=== PATIENT | female | born 1945 | race Caucasian/White ===

== ENCOUNTER 2019-02-10 08:00 | Inpatient (IN) | payer MEDICARE, OTHER ==
[~2019-02-10 08:00] MED LIST: FAMOTIDINE 20MG TABLET PO ONE; MECLIZINE 25 MG TABLET PO ONE; METOCLOPRAMIDE 10 MG TABLET PO ONE
[2019-02-10] MEDS ORDERED: RINGERS SOLUTION,LACTATED 1,000 ML IV ONE (08:40)
[2019-02-10] MEDS ORDERED: NOVOLOG FLEXPEN (INSULIN ASPART) 100 UNITS/ML SQ ONE ×2 (09:24→18:06)
[2019-02-10] MEDS: CLINDAMYCIN 600MG/50ML PREMIX 600 MG/50 ML BAG IVPB ONE ×2 (10:43→10:46)
[2019-02-10] MEDS ORDERED: MAGNESIUM HYDROXIDE 30 ML UDC PO PRN (13:00)
[2019-02-10] MEDS ORDERED: ZOLPIDEM TARTRATE 5 MG TABLET PO PRN (13:00)
[2019-02-10] MEDS ORDERED: AL HYDROX/MAG HYDROX 30ML UD PO PRN (13:00)
[2019-02-10] MEDS ORDERED: ACETAMINOPHEN 325 MG TAB PO PRN (13:00)
[2019-02-10] MEDS ORDERED: NALOXONE 0.4 MG/1 ML VIAL IVP PRN (13:00)
[2019-02-10] MEDS ORDERED: SENNOSIDES/DOCUSATE SODIUM UD CAPSULE PO PRN (13:00)
[2019-02-10] MEDS ORDERED: DIPHENHYDRAMINE HCL 25 MG CAPSULE PO PRN (13:00)
[2019-02-10] MEDS ORDERED: HYDROMORPHONE HCL 2 MG/ML VIAL IV PRN (13:00)
--- NOTE | 2019-02-10 13:11 | Operative Note ---
DATE OF SURGERY: 02/10/2019 SURGEON: Joesph Luz D.O. REFERRING PHYSICIAN: Bruce Ortiz M.D. PREOPERATIVE DIAGNOSIS: OSTEOARTHRITIS OF THE LEFT HIP. POSTOPERATIVE DIAGNOSIS: OSTEOARTHRITIS OF THE LEFT HIP. OPERATION: LEFT TOTAL HIP ARTHROPLASTY. DESCRIPTION: This 73-year-old female was taken to the Operating Room and placed in the supine position on the operating room table. After spinal anesthesia had been introduced, she was then placed in the right lateral decubitus position and bolstered perpendicular to the floor and secured in this position with all bony prominences well padded and the head well secured. The left hip was then prepped with Hibiclens and draped in the usual sterile fashion. The scrub personnel wore personal isolation suits. A lateral hip incision was made dissecting down through the skin and subcutaneous tissue. Hemostasis was obtained with the electrocautery. The tensor was divided in line with the skin incision to expose the posterolateral aspect of the hips. A self retaining hip retractor was placed and the short rotators divided from the posterior aspect of the hip, capsulotomy performed, and the hip joint exposed. We used Steinmann pins as retractors, one superiorly, one posterosuperiorly, and one posteroinferiorly for excellent exposure to the acetabulum. The hip was then dislocated and the neck amputated. A Kober retractor was placed anteriorly, debridement of the labrum and anterior osteophytes was performed. We then began reaming the acetabulum with a size 48 mm reamer and reamed in 1 mm increments to a size 52 to the base of the condyloid notch. The trial cup was subsequently placed and this was seen to be the appropriate size, we subsequently impacted a 52 mm Trident cup in 40 degrees of abduction and approximately 20 degrees of anteversion. Excellent secure fit of the cup was noted and a trial liner was subsequently placed. We then began approaching the femur with box osteotome and subsequently a wrapper hand was placed down the shaft and then using an alternating ream broach technique we counter sunk the size 7 broach, it was actually seen to be a perfect neck cut and no planing of the calcar was necessary so subsequently a size 8 was placed with excellent secure fixation, subsequently the trial head and neck were applied and trial reduction was accomplished. We initially tried a 0 head and this was seen to be slightly too short and subsequently a +2.5 mm head was applied with the 30 mm neck trial and the hip was taken through range of motion, it was measured and found to be exactly reproducing the length of the femur and it was in the same position as it measured at the start of the procedure. The hip was stable throughout the entire range of motion with flexion to 120 wide abduction and external rotation, internal rotation to at last 70 degrees. All trial components were then removed and the wound again copiously irrigated with pulse lavage lactated Ringer's solution and a size 36 mm X3 liner was impacted in place followed by the insertion of a size 8 secure fit collared femoral components and a 36 mm +2.5 mm Biolox head being applied and the hip was reduced and again taken through range of motion with excellent stability of the joint being identified. The wound was again irrigated with lactated Ringer's solution and suctioned. The short rotators and capsule were reattached with #5 Ethibond suture through drill holes through the greater trochanter and secure fixation was subsequently noted. A drain was placed through a separate stab incision. The tensor was closed with #2 Vicryl, subcutaneous tissue was closed with 0 Vicryl, and the skin was stapled. Sterile dressings were applied. The patient was taken to the Recovery Room in satisfactory condition. GROSS PATHOLOGY: The patient demonstrated severe osteoarthritis of the left hip, spurs are present in the acetabulum anterior. Full thickness articular cartilage loss was noted. The final components inserted were: A [place] size 8 Secur-Fit collared femoral component, a 52 mm Trident cup PSL, and a 36 mm +2.5 mm Biolox head was used. JOB NUMBER: [id number] MTDD
[2019-02-10] MEDS: OXYCODONE HCL/APAP 5MG/325MG TABLET PO PRN ×2 (16:07→22:20)
[2019-02-10] MEDS ORDERED: MIDAZOLAM HCL 2MG/2ML VIAL IV ONE (16:12)
[2019-02-10] MEDS ORDERED: PROPOFOL 10 MG/ML VIAL IV ONE (16:12)
[2019-02-10] MEDS ORDERED: KETOROLAC 30 MG/ML VIAL IVP ONE (16:12)
[2019-02-10] MEDS ORDERED: LIDOCAINE 2% MDV (20MG/ML) 20ML VIAL IV ONE (16:12)
[2019-02-10] MEDS ORDERED: ROPIVACAINE HCL (NAROPIN) /PF 5MG/ML 20ML VIAL IV ONE (16:15)
[2019-02-10] MEDS ORDERED: 0.9 % SODIUM CHLORIDE 10 ML VIAL IVP ONE (16:15)
[2019-02-10] MEDS ORDERED: DEXAMETHASONE 4 MG/ML 1ML VIAL IVP ONE (16:15)
[2019-02-10] MEDS: RINGERS SOLUTION,LACTATED 1,000 ML IV SCH (16:32)
--- NOTE | 2019-02-10 17:09 | Rehab Evaluation ---
Patient Information - Patient Information Diagnosis: L hip DJD Ordered Treatment: PT Evaluate and Treat Status: Initial Evaluation Surgery: Yes (LTHR) Date of Surgery: 02/10/19 Past Medical/Surgical Hx: PAST MEDICAL/SURGICAL HISTORY Past Surgical History t& a; hysterectomy; kidney stone removal right; cataract left; cardiac ablation at [facility] (); 2009 ablation @ [facility] ; cardiac cath x RIGHT CATARACT EXTRACTION RTHA C SCOPES EGD'S PMH - Respiratory Hx Respiratory Disorders Yes Hx Pneumonia Yes: long ago Hx Sleep Apnea Yes Hx of CPAP Yes Hx of Oxygen Therapy No PMH - Cardiovascular Hx Cardiovascular Disorders Yes Hx Abnormal EKG Yes: a-fib before ablation Hx Cardiac Catheterization Yes: x2 Hx Hypertension Yes: GOOD CONTROL ON MEDS Hx Irregular Heartbeat Yes: ablation corrected A-Fib Hx Heart Murmur Yes: AT TIMES BENIGN Exercise Tolerance Good Residual Deficits from CVA Yes: NUMBNESS RIGHT SIDE PMH - Neuro Hx Neurological Disorders Yes Hx Cerebrovascular Accident Yes: ISCHEMIC STROKE 2015 Hx Neuropathy Yes: FEET PMH - GI Hx Gastrointestinal Disorders Yes Hx Rectal Bleeding Yes: HX OF Hx Weight Loss/Weight Gain Yes: 10 LB GAIN OVER LAST 4 MONTHS PMH - Hx Genitourinary Disorders Yes Hx Bladder Problem Yes: SOME LEAKING Hx Kidney Stones Yes: hctz caused stones PMH - Endocrine Hx Endocrine Disorders Yes Hx Diabetes Yes: DX'D 2006 Hx of NIDDM Yes Hx of IDDM Yes Comment: fbs 146-160 PMH - Musculoskeletal Hx Musculoskeletal Disorders Yes Hx Arthritis Yes: LEFT hip/ generalized Hx Back Injury Yes: LUMBAR FX PMH - Psych Hx Psychiatric Problems No PMH - Hematology/Oncology Hx Hematology/Oncology Yes Disorders 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 The patient will be staying on the main floor where her bedroom and bathroom are located. The bathroom is equipped with a walk in shower, shower bench, toilet with a riser seat with handles. There are no grab bars in bathroom. The patient has a front wheeled walker and standard cane and reachers, long handled shoe horn and sock aide.) Precautions: [place], Fall, Other (WBAT L LE and THR precautions.) - Time With Patient Total Time Spent With Patient (Min): 20 Treatment Procedures: Detail (Initial evaluation low complexity) Subjective Information - Subjective Information Per Patient (The patient had no complaints of pain.) Objective Data - Mental Status Patient Orientation: Oriented x3 - Visual Perception Appears within normal limits for therapeutic activities - ROM Not within normal limits (The patient's L hip is within THR precautions.) - Strength/Tone Not within normal limits (The patient's LE strength was not tested s/p surgery h owever was functional.) - Bed Mobility Needs Assist (The patient used the trapeze for supine to sit and required minimal PA to lift L LE with sit to supine.) - Transfers Independent (The patient was independent with sit to and from stand transfers. The patient stood but was not able to ambulate due to numbness and inability to weight bear in L LE.) - Balance Balance Sitting: Good Balance Standing: Fair - Gait Detail (The patient was unable to ambulate due to numbness in L LE.) Therapy Assessment - Therapy Assessment Detail (The patient was independent with transfers and bed mobility with use of trapeze. Patient was instructed to ambulate with nursing staff this pm once numbness decreases. Anticipate inpt. PT goals to be met in 1-2 sessions.) Problem List - Problem List Physical Therapy Problem List: Detail (Decreased L LE strength) Goals - Goals Physical Therapy Goals: 1) The patient will ambulate with front wheeled walker househod distances independently WBAT on the L LE. 2) The patient will ambulate on stairs using proper technique with supervision for safety. 3) The patient will be independent THR HEP. 4) The patient will exhibit good understanding of THR precautions. Prognosis - Prognosis Good Plan - Plan Physical Therapy Plan: PT 1-2 sessions for gait training on levels and stairs and instruction in THR HEP.
[2019-02-10] MEDS ORDERED: FONDAPARINUX 2.5 MG/0.5 ML SYR SQ SCH (19:00)
[2019-02-10] MEDS: NOVOLOG FLEXPEN (INSULIN ASPART) 100 UNITS/ML SQ SCH (19:09)
[2019-02-10] MEDS: METFORMIN 500 MG TABLET PO SCH (19:11)
[2019-02-10] MEDS: CLINDAMYCIN 600MG/50ML PREMIX 600 MG/50 ML BAG IVPB SCH (19:51)
[2019-02-10] MEDS ORDERED: LEVEMIR FLEXTOUCH 100 UNIT/ML INSULIN PEN SQ SCH (22:00)
[2019-02-10] MEDS ORDERED: METOPROLOL SUCC 25 MG TAB.ER PO SCH (22:00)
[2019-02-10] MEDS: ASPIRIN 325 MG TAB ENTERIC-COATED PO SCH (22:23)
[2019-02-11] MEDS: CLINDAMYCIN 600MG/50ML PREMIX 600 MG/50 ML BAG IVPB SCH ×2 (02:28→11:00)
[2019-02-11] MEDS: METFORMIN 500 MG TABLET PO SCH (08:22)
[2019-02-11] MEDS: OXYCODONE HCL/APAP 5MG/325MG TABLET PO PRN (08:23)
[2019-02-11] MEDS: NOVOLOG FLEXPEN (INSULIN ASPART) 100 UNITS/ML SQ SCH ×2 (08:25→11:30)
[2019-02-11] MEDS: RINGERS SOLUTION,LACTATED 1,000 ML IV SCH (09:51)
[2019-02-11] MEDS: ASPIRIN 325 MG TAB ENTERIC-COATED PO SCH (09:53)
[2019-02-11] MEDS ORDERED: LOSARTAN POTASSIUM 25 MG TABLET PO SCH (10:00)
[2019-02-11] MEDS ORDERED: BIFIDOBACTERIUM INFANTIS 4 MG CAPSULE PO SCH (10:00)
--- NOTE | 2019-02-11 10:30 | Physical Therapy Tx Note ---
Physical Therapy Tx Note - Treatment Note Tolerated: Good (Patient had some issues with dizziness while she was up walkin g, but for most part did great with walking with FWW, WBAT and stairs. No issues and as long as someone stands by, she is doing well. Nurse checked blood sugar after we were done and that could have been cause of issues.) Physical Therapy Tx Note: Detail (Patient seen at bedside, sitting up edge of bed and ready to walk so can go home as soon as doctor checks her out. Sit to stand safely with FWW close by, ambulated with FWW about 50 feet to door of Med- Surg then back to stairs. Encouraged glut squeeze when weightbearing on left LE to prevent trunk forward tilt. Ambulated down three steps with FWW and rail for support with proper technique then pivoted around and ambulated back up three steps with good technique and CGA only. Sat in chair back in room and performed exercises and reviewed hip precautions with PT then asked to lie down since somewhat dizzy. Nurse informed and patient's blood sugar then checked. Min assist to help patient back into bed with left LE. Good with hip precautions.) Physical Therapy Problem List: Detail (Decreased L LE strength) Physical Therapy Goals: 1) The patient will ambulate with front wheeled walker househod distances independently WBAT on the L LE. 2) The patient will ambulate on stairs using proper technique with supervision for safety. 3) The patient will be independent THR HEP. 4) The patient will exhibit good understanding of THR precautions. Prognosis: Good (Patient has passed goals for going home as far as PT goals concerned and doing very well normally, but having a little blood sugar issue today. Should be resolved soon.) Physical Therapy Plan: PT 1-2 sessions for gait training on levels and stairs and instruction in THR HEP. Most likely discharge home today. At any rate, PT goals met and discharged from PT.
--- NOTE | 2019-02-11 11:04 | Rehab Evaluation ---
Patient Information - Patient Information Diagnosis: L hip DJD Ordered Treatment: OT Evaluate and Treat Status: Initial Evaluation Surgery: Yes (LTHR) Date of Surgery: 02/10/19 Past Medical/Surgical Hx: PAST MEDICAL/SURGICAL HISTORY Past Surgical History t& a; hysterectomy; kidney stone removal right; cataract left; cardiac ablation at [facility] (); 2009 ablation @ [facility] ; cardiac cath x RIGHT CATARACT EXTRACTION RTHA C SCOPES EGD'S PMH - Respiratory Hx Respiratory Disorders Yes Hx Pneumonia Yes: long ago Hx Sleep Apnea Yes Hx of CPAP Yes Hx of Oxygen Therapy No PMH - Cardiovascular Hx Cardiovascular Disorders Yes Hx Abnormal EKG Yes: a-fib before ablation Hx Cardiac Catheterization Yes: x2 Hx Hypertension Yes: GOOD CONTROL ON MEDS Hx Irregular Heartbeat Yes: ablation corrected A-Fib Hx Heart Murmur Yes: AT TIMES BENIGN Exercise Tolerance Good Residual Deficits from CVA Yes: NUMBNESS RIGHT SIDE PMH - Neuro Hx Neurological Disorders Yes Hx Cerebrovascular Accident Yes: ISCHEMIC STROKE 2015 Hx Neuropathy Yes: FEET PMH - GI Hx Gastrointestinal Disorders Yes Hx Rectal Bleeding Yes: HX OF Hx Weight Loss/Weight Gain Yes: 10 LB GAIN OVER LAST 4 MONTHS PMH - Hx Genitourinary Disorders Yes Hx Bladder Problem Yes: SOME LEAKING Hx Kidney Stones Yes: hctz caused stones PMH - Endocrine Hx Endocrine Disorders Yes Hx Diabetes Yes: DX'D 2006 Hx of NIDDM Yes Hx of IDDM Yes Comment: fbs 146-160 PMH - Musculoskeletal Hx Musculoskeletal Disorders Yes Hx Arthritis Yes: LEFT hip/ generalized Hx Back Injury Yes: LUMBAR FX PMH - Psych Hx Psychiatric Problems No PMH - Hematology/Oncology Hx Hematology/Oncology Yes Disorders 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 Pt and spouse share all home mgmt, meal prep and laundry tasks.) Social History: Detail (The patient lives with spouse in a 2 story house with 3 steps at the entrance and 2 handrails. The patient will be staying on the main floor where her bedroom and bathroom are located. The bathroom is equipped with a walk in shower with a shower bench and a toilet with a riser seat with handles. There are no grab bars in bathroom. The patient has a front wheeled walker and standard cane and reachers, long handled shoe horn and sock aide.) Precautions: [place], Fall, Other (WBAT L LE and THR precautions.) - Time With Patient Total Time Spent With Patient (Min): 45 Treatment Procedures: Detail (OT eval low complexity) Subjective Information - Subjective Information Per Patient Objective Data - Pain Pain Present: Yes (06/01) - Mental Status Patient Orientation: Oriented x3 - Visual Perception Appears within normal limits for therapeutic activities - ROM Within normal limits (Thomas UE AROM WNL) - Strength/Tone Within normal limits (Thomas UE strength WNL) - Coordination Appears within normal limits for therapeutic activities - Bed Mobility Independent (Ind with supine to sit) - Transfers Independent (Ind with sit to stand from EOB) - Balance Balance Sitting: Good Balance Standing: Good - Sensation Intact - ADL's/IADL's Detail (Pt was familiar with modified dressing techniques and she was able to demonstrate doffing slipper socks and donning pants, socks and slip on shoes using shore hand dredge or barge, sock aid and long shoe horn while maintaining total hip precautions. Reviewed kitchen and shower safety and modifications and pt verbalized that this is all set.) Therapy Assessment - Therapy Assessment Detail (Pt is Ind with modified LE dressing techniques using adaptive equipment.) Problem List - Problem List Physical Therapy Problem List: Detail (Decreased L LE strength) Occupational Therapy Problem List: Detail (No current IP OT problems identified.) Goals - Goals Physical Therapy Goals: 1) The patient will ambulate with front wheeled walker househod distances independently WBAT on the L LE. 2) The patient will ambulate on stairs using proper technique with supervision for safety. 3) The patient will be independent THR HEP. 4) The patient will exhibit good understanding of THR precautions. Occupational Therapy Goals: No current IP OT goals identified. Prognosis - Prognosis Good Plan - Plan Physical Therapy Plan: PT 1-2 sessions for gait training on levels and stairs an d instruction in THR HEP. Most likely discharge home today. At any rate, PT goals met and discharged from PT. Occupational Therapy Plan: Discharge from IP OT at this time. Thank you for this referral.
--- NOTE | 2019-02-11 14:16 | Discharge Summary ---
DATE OF ADMISSION: 02/10/2019 DATE OF DISCHARGE: 02/11/2019 ADMITTING DIAGNOSIS: OSTEOARTHRITIS OF THE LEFT HIP. DISCHARGE DIAGNOSIS: OSTEOARTHRITIS OF THE LEFT HIP. OPERATIVE PROCEDURE: Left total hip arthroplasty. This 73-year-old female was admitted to the hospital for elective total hip arthroplasty of the left hip. She tolerated the operative procedure well. A drain was placed and removed the first postoperative day. She progressed well with physical therapy and was cleared for discharge. The patient will start outpatient physical therapy and she was instructed to use her WADE hose during the day and remove them at night. She has Percocet at home which she has left over from her previous hip arthroplasty three months ago and she will take that on an as needed basis, but no more frequent than every six hours. She will also take aspirin 325 mg daily for four weeks. Routine wound care instructions were given. She will follow-up in the clinic in two weeks. Should she have any problems prior to be seen she was instructed to call my office. JOB NUMBER: [id number] MTDD
== END 2019-02-11 13:25 | disposition home or self-care (01) | DRG 470 ==
LOC: MEDSURG 08:00
PROVIDERS: ADMIT Orthopaedic Surgery; ATTEND Orthopaedic Surgery
PROC: 0SRB06A Replacement of Left Hip Joint with Oxidized Zirconium on Polyethylene Synthetic Substitute, Uncemented, Open Approach (ICD-10-PCS; principal; 2019-02-10 11:00)
DX: M16.12 Unilateral primary osteoarthritis, left hip (principal); I10 Essential (primary) hypertension; E11.9 Type 2 diabetes mellitus without complications; Z79.4 Long term (current) use of insulin; Z86.73 Personal history of transient ischemic attack (TIA), and cerebral infarction without residual deficits
CPT/HCPCS: 36416; 76942; 82948; C1776; J1885; J7120